=== PATIENT | male | born 1965 | race African-American/Black ===

== ENCOUNTER → 2016-08-20 | Outpatient (CLI) | payer OTHER ==
--- NOTE | 2016-08-20 14:16 | MR ---
EXAMINATION TYPE: MR lumbar spine wo con DATE OF EXAM: 08/20/2016 2:10 PM COMPARISON: NONE HISTORY: Back pain TECHNIQUE: Multiplanar, multisequence images of the lumbar spine were acquired. L1-L2: Normal disc appearance without desiccation. No herniation, protrusion or disc bulging. No ca nal stenosis is present. Foramina are patent bilaterally. L2-L3: Normal disc appearance without desiccation. No herniation, protrusion or disc bulging. No ca nal stenosis is present. Foramina are patent bilaterally. L3-L4: Normal disc appearance without desiccation. No herniation, protrusion or disc bulging. No ca nal stenosis is present. Foramina are patent bilaterally. L4-L5: There is moderate disc desiccation noted. Posterocentral disc protrusion with annular tear. Mi ld effacement ventral thecal sac. No evidence for lateral recess stenosis or central stenosis. Visual ized foramina are patent bilaterally. L5-S1: Severe disc desiccation. Grade 1-2 anterolisthesis L5 on S1 of nearly 1 cm. Bilateral spondyl olysis. Associated disc bulging with mild effacement ventral thecal sac. No evidence for tylor hernia tion or central stenosis. Bilateral neural foraminal encroachment. Lumbar segments are intact. No paraspinal masses are identified. Conus medullaris has a normal appe arance. IMPRESSION: 1. Multilevel degenerative disc disease. 2. Disc protrusion with annular tear at L4-5. 3. Anterolisthesis L5 on S1 as discussed.
--- NOTE | 2016-08-20 14:50 | MR ---
EXAMINATION TYPE: MR knee RT wo con DATE OF EXAM: 08/20/2016 2:30 PM COMPARISON: 06/13/2014 HISTORY: Rt. knee pain TECHNIQUE: Multiplanar, multisequence imaging of the right knee is performed without IV contrast. FINDINGS: MEDIAL MENISCUS: There appears to be a meniscal body radial tear. LATERAL MENISCUS: Anterior and posterior horns are intact without tear. CRUCIATE LIGAMENTS: The anterior and posterior cruciate ligaments are intact and unremarkable. COLLATERAL LIGAMENTS: The medial collateral ligament and lateral collateral ligament complex are inta ct and unremarkable. EXTENSOR MECHANISM: Visualized quadriceps and patellar tendons are intact. EFFUSION: No significant suprapatellar joint effusion. POPLITEAL CYST: No popliteal/smiley cyst. TRICOMPARTMENT SPACES: Patellofemoral joint space narrowing and mild medial tibiofemoral joint space narrowing. CARTILAGE: There is grade II to III chondromalacia involving the medial patellar facet. There is grad e II to III chondromalacia involving the trochlear cartilage. BONE MARROW SIGNAL: No focal abnormal marrow signal is appreciated. OTHER: No additional significant abnormality is appreciated. IMPRESSION: 1. Radial tear of the meniscal body. 2. Chondromalacia of the patella.
== END | disposition home or self-care (01) ==
LOC: RADMRIMAIN 13:25
PROVIDERS: ATTEND Nurse Practitioner Family
DX: M51.26 Other intervertebral disc displacement, lumbar region (principal); M51.36 Other intervertebral disc degeneration, lumbar region; M43.17 Spondylolisthesis, lumbosacral region; S83.241A Other tear of medial meniscus, current injury, right knee, initial encounter; M22.41 Chondromalacia patellae, right knee
CPT/HCPCS: 72148

== ENCOUNTER → 2016-09-01 | Outpatient (CLI) | payer OTHER ==
[2016-08-28 14:47] VITALS: BMI 26.6
[2016-09-01 13:54] VITALS: BP 139/91; PULSE 71; RESP 16; TEMP 97.8
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
== END | disposition home or self-care (01) ==
LOC: PNWHC3 13:33
PROVIDERS: ATTEND Specialist
DX: G89.29 Other chronic pain (principal); M51.36 Other intervertebral disc degeneration, lumbar region; B02.29 Other postherpetic nervous system involvement; M48.06 Spinal stenosis, lumbar region; M47.816 Spondylosis without myelopathy or radiculopathy, lumbar region; M46.96 Unspecified inflammatory spondylopathy, lumbar region; F17.200 Nicotine dependence, unspecified, uncomplicated; Z79.1 Long term (current) use of non-steroidal anti-inflammatories (NSAID); Z79.899 Other long term (current) drug therapy; Z88.8 Allergy status to other drugs, medicaments and biological substances
CPT/HCPCS: 99201

== ENCOUNTER 2017-09-16 19:11 | Emergency (ER) | payer OTHER ==
[2017-09-16 19:42] VITALS: RESP 18
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
--- NOTE | 2017-09-16 21:06 | XR ---
EXAMINATION TYPE: XR lumbar spine 2 or 3V DATE OF EXAM: 09/16/2017 COMPARISON: 04/21/2011 HISTORY: Back pain after falling TECHNIQUE: 3 views FINDINGS: There is 1 cm anterior subluxation of L5 in relation S1. There is narrowing at L5-S1 disc s pace. There is bilateral L5 spondylolysis. There is 25% anterior wedging of L1 vertebral body. This appears to be an acute fracture. This is new compared to old exam. IMPRESSION: L1 compression fracture is new compared to old exam. Spondylolysis of L5 with 1st to 2nd degree L5-S1 spondylolisthesis appears stable.
--- NOTE | 2017-09-16 21:07 | XR ---
EXAMINATION TYPE: XR sacrum coccyx DATE OF EXAM: 09/16/2017 COMPARISON: NONE HISTORY: Pain after falling TECHNIQUE: 2 views FINDINGS: There is L5 spondylolysis with 1st to 2nd degree L5-S1 spondylolisthesis. Sacral segments h ave normal alignment. Coccyx appears intact. Sacroiliac joints appear intact. IMPRESSION: No acute abnormality of the sacrum and coccyx. No acute fracture seen..
--- NOTE | 2017-09-16 21:44 | CT ---
EXAMINATION TYPE: CT lumbar spine wo con DATE OF EXAM: 09/16/2017 9:35 PM COMPARISON: 08/14/2014 HISTORY: Low back pain CT DLP: 412.3 mGycm Automated exposure control for dose reduction was used. Unenhanced CT of the lumbar spine was performed. Bone and soft tissue window settings are submitted as well as coronal and sagittal reconstructions. There is right-sided L5 spondylolysis. There is a 1st to 2nd degree L5-S1 spondylolisthesis. The subl uxation is 1.5 cm. There is moderate narrowing of L5-S1 disc space. There is anterior wedging of L1 vertebral body with depression of the superior endplate. Loss of heig ht is approximately 20%. There is no paraspinal mass. I see no evidence of fracture fragment involvem ent of the spinal canal. The sacroiliac joints are intact. I see no focal bone destruction. IMPRESSION: There is second degree L5-S1 spondylolisthesis with L5 spondylolysis. This is stable compared to 08/14 exam. There is an acute mild compression fracture of L1 vertebral body without any sign of spinal canal inv olvement. No spinal stenosis. Small posterior L4-5 lumbar concentric disc herniation noted.
[2017-09-16] MEDS ORDERED: MORPHINE SULFATE 4 MG/ML SYRINGE IM STA (22:14)
[2017-09-16] MEDS ORDERED: MORPHINE SULFATE/PF 10MG/10ML VL ONE (22:20)
[2017-09-16] MEDS ORDERED: MORPHINE SULFATE/PF 10MG/10ML VL IM STA (22:30)
[2017-09-16 22:32] VITALS: BP 138/87; PULSE 87; TEMP 97.3
== END 2017-09-16 22:32 | disposition home or self-care (01) ==
LOC: EC 19:11
DX: S32.019A Unspecified fracture of first lumbar vertebra, initial encounter for closed fracture (principal); F17.200 Nicotine dependence, unspecified, uncomplicated; Z88.6 Allergy status to analgesic agent; W19.XXXA Unspecified fall, initial encounter
CPT/HCPCS: 72100; 72131; 72220; 96372; 99284

== ENCOUNTER 2018-01-16 18:44 | Emergency (ER) | payer OTHER ==
[2018-01-16 18:47] VITALS: BP 118/84; PULSE 74; RESP 20; TEMP 98.2
[2018-01-16] MEDS ORDERED: PENICILLIN VK 500MG STARTER 4 TAB BTL PO STA (19:07)
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
== END 2018-01-16 19:24 | disposition home or self-care (01) ==
LOC: EC 18:44
DX: K04.7 Periapical abscess without sinus (principal); S02.5XXA Fracture of tooth (traumatic), initial encounter for closed fracture; F17.200 Nicotine dependence, unspecified, uncomplicated; Z88.6 Allergy status to analgesic agent; X58.XXXA Exposure to other specified factors, initial encounter
CPT/HCPCS: 99283

== ENCOUNTER 2018-08-28 20:16 | Emergency (ER) | payer OTHER ==
[2018-08-28 21:03] VITALS: BP 109/69; PULSE 87; RESP 18; TEMP 99.1
--- NOTE | 2018-08-28 21:27 | XR ---
EXAMINATION TYPE: XR wrist complete RT DATE OF EXAM: 08/28/2018 CLINICAL HISTORY: Right wrist pain after injury TECHNIQUE: Frontal, lateral and oblique images of the right wrist are obtained. Navicular view was a lso obtained. COMPARISON: None FINDINGS: There is no acute fracture/dislocation evident in the right wrist. The joint spaces in th e right wrist appear within normal limits. Mild degenerative changes are seen of the first carpometac arpal joint demonstrated as opposing surface sclerosis. The overlying soft tissue appears unremarkabl e. IMPRESSION: There is no acute fracture or dislocation in the right wrist.
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
== END 2018-08-28 21:44 | disposition home or self-care (01) ==
LOC: EC 20:16
DX: M25.531 Pain in right wrist (principal); F17.200 Nicotine dependence, unspecified, uncomplicated; Z88.6 Allergy status to analgesic agent; Y93.B2 Activity, push-ups, pull-ups, sit-ups; Y92.39 Other specified sports and athletic area as the place of occurrence of the external cause
CPT/HCPCS: 29125; 99283

== ENCOUNTER 2018-08-30 07:29 | Emergency (ER) | payer OTHER ==
[2018-08-30 07:37] VITALS: BP 137/95; PULSE 76; RESP 18; TEMP 98.2
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
--- NOTE | 2018-08-30 08:36 | XR ---
EXAMINATION TYPE: XR wrist complete RT DATE OF EXAM: 08/30/2018 CLINICAL HISTORY: Injury with pain. TECHNIQUE: Frontal, lateral, scaphoid, and oblique images of the right wrist are obtained. COMPARISON: Right wrist x-ray from 2 days ago. FINDINGS: There is no acute fracture/dislocation evident in the right wrist. The joint spaces in th e right wrist appear within normal limits. The overlying soft tissue appears unremarkable. IMPRESSION: There is no acute fracture or dislocation in the right wrist. No significant change from prior.
== END 2018-08-30 08:51 | disposition left against medical advice (07) ==
LOC: EC 07:29
DX: M25.531 Pain in right wrist (principal); F17.200 Nicotine dependence, unspecified, uncomplicated; Z88.6 Allergy status to analgesic agent
CPT/HCPCS: 99284

== ENCOUNTER 2018-10-13 11:27 | Emergency (ER) | payer OTHER ==
[2018-10-13 11:42] VITALS: TEMP 98.2
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
[2018-10-13 12:31] VITALS: BP 125/86; PULSE 64; RESP 16
[2018-10-13] MEDS ORDERED: AMOXIC-POT CLAV 875MG STARTER 2 EACH TABLET PO STA (12:33)
[2018-10-13] MEDS ORDERED: KETOROLAC 30 MG/ML 1 ML VIAL IM STA (12:34)
== END 2018-10-13 13:06 | disposition home or self-care (01) ==
LOC: EC 11:27
DX: H66.92 Otitis media, unspecified, left ear (principal); G89.29 Other chronic pain; M54.9 Dorsalgia, unspecified; F17.200 Nicotine dependence, unspecified, uncomplicated; Z79.891 Long term (current) use of opiate analgesic; Z79.1 Long term (current) use of non-steroidal anti-inflammatories (NSAID); Z88.6 Allergy status to analgesic agent
CPT/HCPCS: 99283; 96372; J1885

== ENCOUNTER → 2019-03-24 | Outpatient (CLI) | payer OTHER ==
--- NOTE | 2019-03-24 15:31 | MR ---
MRI BRAIN AND CERVICAL SPINE WITHOUT CONTRAST: CLINICAL HISTORY: Paresthesias TECHNIQUE: Multiplanar, multisequence imaging of the brain and cervical spine is performed without in travenous contrast. COMPARISON: None FINDINGS: Motion artifact is seen on the images limiting evaluation. The patient was instructed to re main still however motion artifact persists. Brain: Diffusion weighted images demonstrate no evidence of a recent infarct or other diffusion abnor mality. There is no extra-axial fluid collection. There are multiple foci of T2/FLAIR hyperintensity (at least 45 on the left and 29 on the right. These measure up to 0.5 x 0.4 cm marked on FLAIR axial fat-sat image 21 posterior left frontal lobe. These are located within the juxtacortical white matte r, periventricular white matter, and pericallosal white matter. The ventricular system and cisternal spaces are normal in size and appearance. The brain volume is age appropriate. Midline structures demonstrate normal morphology. Incidentally noted midline Thornwaldt cyst. The cr aniocervical junction appears within normal limits. Post contrast images demonstrate no abnormal enh ancement. The dural venous sinuses appear patent. The visualized sinuses demonstrate a 1.8 cm mucosal retention cysts of the right maxillary sinus and trace mucosal thickening of the ethmoid sinuses, fr ontal sinuses and maxillary sinuses. There is additionally a second maxillary mucosal retention cyst on the right measuring 2.0 cm. Cervical spine: The cervical spine vertebral bodies maintain normal vertebral body height and alignme nt. Extensive motion artifact limits evaluation. Multilevel degenerative disc disease is seen. Spinal cord signal is markedly limited. C2-C3: There is a small posterior disc osteophyte complex and broad-based disc bulge without spinal c anal stenosis nor neural foraminal narrowing. C3-C4: There is a broad-based disc bulge, uncovertebral hypertrophy and facet arthropathy creating mo derate right and mild left neural foraminal narrowing. No significant spinal canal stenosis although there is slight narrowing the ventral subarachnoid space. C4-C5: There is a right paracentral disc herniation, uncovertebral hypertrophy, and facet arthropathy creating moderate bilateral neural foraminal narrowing and no spinal canal stenosis. C5-C6: There is uncovertebral hypertrophy and facet arthropathy creating severe right and moderate le ft neural foraminal narrowing. Broad-based disc bulge is seen without spinal canal stenosis. C6-C7: There is a right paracentral disc herniation creating mild spinal canal stenosis abutting the ventral thecal sac and narrowing the ventral subarachnoid space. There is also uncovertebral hypertro phy and facet arthropathy. Evaluation of the neural foramen are limited at this level given extensive patient motion although there does appear to be severe bilateral neural foraminal narrowing. C7-T1: Limited evaluation due to patient motion. There is a probable left paracentral disc herniation extending into the left neural foramen creating at least moderate left neural foraminal narrowing. M ild right neural foraminal narrowing is seen. No discrete spinal canal stenosis. IMPRESSION: 1. Right paracentral disc herniation at C6-C7 creating mild spinal canal stenosis. Evaluation of the neural foramen are limited secondary to patient motion although there does appear to be severe bilate ral neural foraminal narrowing. 2. Probable left paracentral disc herniation extending into the left neural foramen at C7-T1 however this is extremely limited given patient motion. 3. Right paracentral disc herniation at C4-C5 is mild. No spinal canal stenosis. 4. Moderate multilevel degenerative disc disease of the cervical spine creating variable degrees of n eural foraminal narrowing as detailed above. Evaluation of the spinal cord is extremely limited with signal overall nondiagnostic for small plaques given extensive patient motion. 5. Numerous foci of nonspecific white matter change (at least 45 on the left and 23 in the right with in the cerebral hemispheres). Considerations are for demyelinating disease given the distribution, at ypical infections such as Lyme's disease, or sequela of microangiopathy. 6. Moderate paranasal sinus disease with large mucosal retention cysts in the right maxillary sinus.
== END | disposition home or self-care (01) ==
LOC: RADMRIMAIN 11:04
PROVIDERS: ATTEND Psychiatry & Neurology Neurology
DX: M48.02 Spinal stenosis, cervical region (principal); M50.221 Other cervical disc displacement at C4-C5 level; M50.30 Other cervical disc degeneration, unspecified cervical region; R90.89 Other abnormal findings on diagnostic imaging of central nervous system; R20.2 Paresthesia of skin
CPT/HCPCS: 70551; 72141

== ENCOUNTER → 2020-07-23 | Outpatient (CLI) | payer OTHER ==
[2020-07-23 09:31] VITALS: BP 118/79; PULSE 74; RESP 16; TEMP 97.6
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
== END | disposition home or self-care (01) ==
LOC: PNWHC3 08:40
PROVIDERS: ATTEND Specialist
DX: M51.26 Other intervertebral disc displacement, lumbar region (principal); M47.816 Spondylosis without myelopathy or radiculopathy, lumbar region; F17.200 Nicotine dependence, unspecified, uncomplicated; Z88.5 Allergy status to narcotic agent; Z79.899 Other long term (current) drug therapy
CPT/HCPCS: 99211

== ENCOUNTER 2020-11-17 18:36 | Emergency (ER) | payer OTHER ==
[2020-11-17 18:50] VITALS: TEMP 97.8
[2020-11-17] MEDS ORDERED: SODIUM CHLORIDE 0.9% 1,000 ML IV STA (19:16)
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
[2020-11-17 19:17] LABS: Basophils # (A) 0.1 k/uL (0-0.2); Basophils % (A) 1 %; Eosinophils # (A) 0.3 k/uL (0-0.7); Eosinophils % (A) 4 %; HGB 15.9 gm/dL (13.0-17.5); Lymphocytes # (A) 1.1 k/uL (1.0-4.8); Lymphocytes % (A) 14 %; MCH 32.2 pg (25.0-35.0); MCHC 34.6 g/dL (31.0-37.0); MCV 92.9 fL (80.0-100.0); Mean Platelet Volume 7.9; Monocytes # (A) 0.7 k/uL (0-1.0); Monocytes % (A) 9 %; Neutrophils # (A) 5.4 k/uL (1.3-7.7); Neutrophils % (A) 71 %; Platelet Count 167 k/uL (150-450); RBC 4.95 m/uL (4.30-5.90); RDW 13.3 % (11.5-15.5); WBC 7.7 k/uL (3.8-10.6)
[2020-11-17 19:22] LABS: Calcium 9.2 mg/dL (8.4-10.2); Potassium 4.2 mmol/L (3.5-5.1)
[2020-11-17 20:48] VITALS: BP 117/72; PULSE 69; RESP 18
== END 2020-11-17 20:48 | disposition home or self-care (01) ==
LOC: EC 18:36
DX: R55 Syncope and collapse (principal); F17.200 Nicotine dependence, unspecified, uncomplicated; F12.90 Cannabis use, unspecified, uncomplicated
CPT/HCPCS: 36415; 80048; 83880; 84484; 85025; 93005; 96360; 99284

== ENCOUNTER → 2021-01-28 | Outpatient (CLI) | payer OTHER ==
--- NOTE | 2021-01-29 03:16 | MR ---
EXAMINATION TYPE: MR brain/cspine wo/w DATE OF EXAM: 01/28/2021 COMPARISON: 03/24/2019 HISTORY: Patient has history of cancer. Dizziness and headache. CONTRAST: Standard multiplanar, multisequence MRI departmental protocol utilizing 8 mL intravenous Gadavist john olinium contrast. Diffusion images show no evidence of an acute infarct. Ventricles and sulci appear normal. There is n o mass effect nor midline shift. There is no sign of intracranial hemorrhage. Brainstem is intact. Th ere are scattered multiple small foci of increased signal at the garcia-white matter junction both cere bral hemispheres. Total number is approximately 30 and these measure up to 6 mm. The cerebellum appea rs intact. There are mucus retention cysts in the maxillary sinuses. There is no evidence of posterio r fossa mass. Sella turcica appears normal. Corpus callosum is intact. Contrast images show no pathologic enhancement. There is normal enhancement of the venous sinuses. Cervical vertebra have normal alignment. Disc spaces are fairly normal. There is posterior disc herni ation at C6-7 elevating the posterior longitudinal ligament. Spinal canal is narrowed to 7 mm. Cervic al spinal cord shows normal signal pattern. There is no edema. There is no significant spinal stenosi s. Facet joints are intact. There is small posterior disc bulging at C3-4 and C4-5. There is C7-T1 po sterior mild disc bulging. I see no focal bone destruction. Contrast images show no pathologic enhanc ement of the cervical spine. IMPRESSION: Posterior disc herniation at C6-7 with 7 mm spinal canal. Numerous brain white matter small high signal foci. This could relate to multifocal microvascular isc hemia or demyelinating disease. No evidence of demyelinating disease in the cervical spinal cord. No evidence of cortical infarct.
--- NOTE | 2021-01-30 12:22 | CTL ---
EXAMINATION TYPE: CT Low Dose Lung DATE OF EXAM ORDERED: 01/28/2021 HISTORY: 55-year-old male Z87.891, personal tobacco use. Lung cancer screening CT DLP: 113.[address] CTDI: 3.3 mGy Automated exposure control for dose reduction was used. SCREENING VISIT: Baseline COMPARISON: None TECHNIQUE: Low dose computed tomography scan was performed through the chest with coronal and sagitta l reconstructions. CT DIAGNOSTIC QUALITY: Satisfactory FINDINGS: Heart normal size without pericardial effusion. Mildly ectatic aortic root at 3.7 cm. Bovine configuration to the aortic arch. A few prominent but nonenlarged mediastinal lymph nodes measuring up to 7 mm in the AP window and pre carinal space. No thoracic lymphadenopathy by CT size criteria. There is mild diffuse bronchial wall thickening. Mild paraseptal and centrilobular emphysema with gema pical pleural parenchymal scarring is noted. A few scattered tiny calcified granulomas. Mild strandy dependent atelectasis in the lower lobes. No consolidation or pleural effusion. Some nodularity in the right middle lobe measuring up to 5 mm as an almost tree in bud appearance, ax ial image 175 through 182. 4 mm triangular nodule along the minor fissure, axial image 141. Visualized upper abdomen shows a few gallstones measuring up to 1.4 cm. No abnormal gallbladder diste ntion. Bones: No osseous destructive process. IMPRESSION: 1. LungRADS Category 2 (benign appearance, <1% chance of malignancy). A few tiny pulmonary nodules on the right measuring up to 5 mm on baseline screening. The largest nodule is suspected to relate to t ree-in-bud opacities which could represent a small area of bronchiolitis. 2. COPD with mild emphysema. Recommend smoking cessation. 3. Cholelithiasis measuring up to 1.[address] LUNG RAD AND CT CHEST RECOMMENDATION: Lung-Rad 2 Benign Appearance or Behavior: Continue annual sc reening with LDCT in 12 months.
== END | disposition home or self-care (01) ==
LOC: RADCTMAIN 15:37
PROVIDERS: ATTEND Internal Medicine Hematology & Oncology
DX: Z12.2 Encounter for screening for malignant neoplasm of respiratory organs (principal); M50.223 Other cervical disc displacement at C6-C7 level; R93.0 Abnormal findings on diagnostic imaging of skull and head, not elsewhere classified; R91.8 Other nonspecific abnormal finding of lung field; J43.2 Centrilobular emphysema
CPT/HCPCS: 71271; 70553; 72156; A9585

== ENCOUNTER 2022-12-21 10:46 | Emergency (ER) | payer OTHER ==
[2022-12-21] MEDS ORDERED: HYDROmorphone 1 MG/ML 1 ML SYRINGE IVP STA ×2 (11:10→14:16)
[2022-12-21 11:23] LABS: Glucose,Whole Blood 123 mg/dL (70-110)
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
[2022-12-21 11:43] LABS: Basophils % (A) 0 %; Eosinophils # (A) 0.3 k/uL (0-0.7); Eosinophils % (A) 5 %; HCT 44.9 % (39.0-53.0); HGB 14.8 gm/dL (13.0-17.5); Lymphocytes # (A) 1.3 k/uL (1.0-4.8); Lymphocytes % (A) 18 %; MCH 30.9 pg (25.0-35.0); MCV 93.4 fL (80.0-100.0); Mean Platelet Volume 8.7; Monocytes # (A) 0.4 k/uL (0-1.0); Monocytes % (A) 5 %; Neutrophils # (A) 4.8 k/uL (1.3-7.7); Neutrophils % (A) 69 %; Platelet Count 143 k/uL (150-450); RDW 13.9 % (11.5-15.5); WBC 6.9 k/uL (3.8-10.6)
[2022-12-21 11:50] LABS: ALT 20 U/L (4-49); AST 35 U/L (17-59); African American GFR (CKD) 58 (>60 ml/min/1.73 sqM); Albumin 3.8 g/dL (3.5-5.0); Alcohol <10 mg/dL; Alkaline Phosphatase 74 U/L (38-126); Anion Gap 6 mmol/L; Blood Urea Nitrogen 15 mg/dL (9-20); Calcium 8.6 mg/dL (8.4-10.2); Carbon Dioxide 23 mmol/L (22-30); Chloride 110 mmol/L (98-107); Glucose 98 mg/dL (74-99); Non-African American GFR(CKD) 50 (>60 ml/min/1.73 sqM); Potassium 4.4 mmol/L (3.5-5.1); Sodium 139 mmol/L (137-145); Total Bilirubin 1.2 mg/dL (0.2-1.3); Total Protein 6.8 g/dL (6.3-8.2)
[2022-12-21 11:57] LABS: INR 1.2 (<1.2); Partial Thromboplastin Time 24.6 sec (22.0-30.0); Prothrombin Time 12.1 sec (9.0-12.0)
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
[2022-12-21 15:01] LABS: Urn Cannabinoid Scrn Detected (NotDetected)
[2022-12-21 15:02] LABS: Amphetamine Screen,Urine Not Detected (NotDetected); Barbiturate Screen,Urine Not Detected (NotDetected); Benzodiazepines Screen,Urine Not Detected (NotDetected); Cocaine Screen,Urine Not Detected (NotDetected); Methadone Screen, Urine Not Detected (NotDetected); Opiate Screen,Urine Detected (NotDetected); Oxycodone Screen, Urine Not Detected (NotDetected); Phencyclidine Screen,Urine Not Detected (NotDetected); Tricyclic Antidepressant,Urine Not Detected (NotDetected)
--- NOTE | 2022-12-21 15:05 | XR ---
Right wrist. HISTORY: Post reduction film for distal radial fracture. TECHNIQUE: 2 views the right wrist are obtained. FINDINGS: On the AP view of the right wrist there is near anatomic alignment of the distal right radial metaphy seal fracture. On the lateral view there is mild posterior displacement. The carpal bones and articul ations are normal. IMPRESSION: Post reduction for distal right radial fracture as described above.
[2022-12-21 15:14] VITALS: BP 136/107; PULSE 78; RESP 19; TEMP 97.6
== END 2022-12-21 15:13 | disposition home or self-care (01) ==
LOC: EC 10:46
DX: S29.011A Strain of muscle and tendon of front wall of thorax, initial encounter (principal); S52.501D Unspecified fracture of the lower end of right radius, subsequent encounter for closed fracture with routine healing; F12.90 Cannabis use, unspecified, uncomplicated; F17.200 Nicotine dependence, unspecified, uncomplicated; Z88.6 Allergy status to analgesic agent; V86.55XA Driver of 3- or 4- wheeled all-terrain vehicle (ATV) injured in nontraffic accident, initial encounter
CPT/HCPCS: 36415; 93005; 80053; 84484; 85025; 85610; 85730; 80306; 72170; 73100; 73110; 71045; 71260; 74177; 99284; 96374; 96376; 25605; G0480; J1170; Q9967; 80320

== ENCOUNTER 2023-06-22 20:10 | Emergency (ER) | payer OTHER ==
[2023-06-22 20:26] VITALS: TEMP 98
[2023-06-22 21:16] VITALS: RESP 18
[2023-06-22 21:47] LABS: Basophils % (A) 0 %; Eosinophils # (A) 0.4 k/uL (0-0.7); Eosinophils % (A) 4 %; HCT 45.9 % (39.0-53.0); HGB 15.6 gm/dL (13.0-17.5); Lymphocytes # (A) 2.2 k/uL (1.0-4.8); Lymphocytes % (A) 24 %; MCH 31.9 pg (25.0-35.0); MCHC 34.1 g/dL (31.0-37.0); MCV 93.6 fL (80.0-100.0); Mean Platelet Volume 8.4; Monocytes # (A) 0.6 k/uL (0-1.0); Monocytes % (A) 6 %; Neutrophils # (A) 5.9 k/uL (1.3-7.7); Neutrophils % (A) 64 %; Platelet Count 178 k/uL (150-450); RDW 13.1 % (11.5-15.5); WBC 9.2 k/uL (3.8-10.6)
--- NOTE | 2023-06-22 21:56 | XR ---
EXAMINATION TYPE: XR chest 2V DATE OF EXAM: 06/22/2023 9:16 PM CLINICAL INDICATION:Male, 57 years old with history of Chest Pain; COMPARISON: Chest radiographs from 12/21/2022 TECHNIQUE: XR chest 2V Frontal and lateral views of the chest. FINDINGS: Lungs/Pleura: There is no evidence of pleural effusion, focal consolidation, or pneumothorax. Pulmonary vascularity: Unremarkable. Heart/mediastinum: Cardiomediastinal silhouette is unremarkable. Musculoskeletal: No acute osseous pathology. IMPRESSION: No acute cardiopulmonary disease/process.
[2023-06-22 21:59] LABS: INR 1.1 (<1.2); Prothrombin Time 11.6 sec (10.0-12.5)
[2023-06-22 22:00] VITALS: BP 136/95; PULSE 65
[2023-06-22 22:01] LABS: ALT 16 U/L (4-49); AST 24 U/L (17-59); African American GFR (CKD) 83 (>60 ml/min/1.73 sqM); Albumin 3.8 g/dL (3.5-5.0); Alkaline Phosphatase 78 U/L (38-126); Anion Gap 11 mmol/L; Blood Urea Nitrogen 9 mg/dL (9-20); Calcium 8.9 mg/dL (8.4-10.2); Carbon Dioxide 20 mmol/L (22-30); Chloride 110 mmol/L (98-107); Glucose 94 mg/dL (74-99); Magnesium 1.7 mg/dL (1.6-2.3); Non-African American GFR(CKD) 72 (>60 ml/min/1.73 sqM); Sodium 141 mmol/L (137-145); Total Bilirubin 0.5 mg/dL (0.2-1.3); Total Protein 6.8 g/dL (6.3-8.2)
[2023-06-22 22:14] LABS: Appearance,Urine Clear (Clear); Bilirubin,Urine Negative (Negative); Blood,Urine Negative (Negative); Color,Urine Light Yellow; Glucose,Urine (UA) Negative (Negative); Ketones,Urine Negative (Negative); Leukocyte Esterase,Urine Negative (Negative); Nitrite,Urine Negative (Negative); PH, Urine 6.5 (5.0-8.0); Protein,Urine Negative (Negative); Specific Gravity,Urine 1.012 (1.001-1.035); Urobilinogen,Urine <2.0 mg/dL (<2.0)
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
== END 2023-06-23 00:58 | disposition left against medical advice (07) ==
LOC: EC 20:10
DX: R07.89 Other chest pain (principal); F17.200 Nicotine dependence, unspecified, uncomplicated; F12.90 Cannabis use, unspecified, uncomplicated; Z88.6 Allergy status to analgesic agent; Z53.29 Procedure and treatment not carried out because of patient's decision for other reasons
CPT/HCPCS: 36415; 71046; 80053; 81003; 83735; 84484; 85025; 85379; 85610; 85730; 99285

== ENCOUNTER → 2024-04-27 | Outpatient (CLI) | payer OTHER ==
--- NOTE | 2024-04-27 13:35 | CTL ---
EXAMINATION TYPE: CT Low Dose Lung DATE OF EXAM ORDERED: 04/27/2024 COMPARISON: CT chest abdomen pelvis 12/21/2022, CT Low Dose Lung 01/28/2021 CLINICAL INDICATION: Male, 58 years old with history of F17.200 NICOTINE DEPENDENCE, CIGARETTES, UNCO MPLICATED; PHH, SMOKER, Lung cancer screening, History of Smoking/tobacco use. TECHNIQUE: Low dose computed tomography scan was performed through the chest at 1 mm thick sections a nd reconstructed images in multiple planes at 1 mm and [address] DLP: 117.[address] CTDI: 3.2 mGy Automated exposure control for dose reduction was used. CT DIAGNOSTIC QUALITY: Satisfactory FINDINGS: Nodules: Left lower lobe calcified 3 mm granuloma. Right midlung 3.7 mm pulmonary nodule abutting the minor fissure (series 6, image 28). Stable from 20 21. Stable right middle lobe 4.9 mm pulmonary nodule (series 4, image 167). No new or enlarging pulmonary nodules. LUNGS: COPD: Severity: Mild paraseptal emphysema changes. Fibrosis: Severity: None Lymph nodes: None Other findings: None RIGHT PLEURAL SPACE: Effusion: None Calcification: None Thickening: None Pneumothorax: None LEFT PLEURAL SPACE: Effusion: None Calcification: None Thickening: None Pneumothorax: None HEART: Heart Size: Normal Coronary Calcification: None Pericardial Effusion: None OTHER FINDINGS: Upper abdomen: Cholelithiasis. Bony thorax: None Supraclavicular region: None Other: Mild bilateral gynecomastia. IMPRESSION: Couple of stable pulmonary nodule dating back to 2020 and considered benign. No new or enlarging pulm onary habitus. CT LUNG RAD AND CT CHEST RECOMMENDATION: Lung-Rad 2 Benign Appearance or Behavior: Continue annual sc reening with LDCT in 12 months. S Modifier (other clinically significant findings): None [facility], , 04/27/2024 1:33 PM
== END | disposition home or self-care (01) ==
LOC: RADCTMAIN 11:33
PROVIDERS: ATTEND Internal Medicine
DX: Z12.2 Encounter for screening for malignant neoplasm of respiratory organs (principal); F17.210 Nicotine dependence, cigarettes, uncomplicated; R91.1 Solitary pulmonary nodule
CPT/HCPCS: 71271

== ENCOUNTER → 2024-05-11 | Outpatient (CLI) | payer OTHER ==
--- NOTE | 2024-05-11 09:33 | US ---
EXAMINATION TYPE: US Aorta Screening DATE OF EXAM: 05/11/2024 COMPARISON: CT(12/21/2022) CLINICAL INDICATION: Male, 58 years old with history of F17.210 NICOTINE DEPENDENCE F17.200 CURRENT S MOKER; TECHNIQUE: Multiple sonographic images of the abdominal aorta are obtained with grayscale and color D oppler imaging. with grayscale and color Doppler imaging FINDINGS: EXAM MEASUREMENTS: Abdominal Aorta: Proximal: 2.7x2.7cm Mid: 2.2x2.0cm Distal: 3.2x2.9cm Bifurcation: Right Iliac: 0.8x1.0cm Left Iliac: 1.1x0.8cm MEDICAL VAN DRIVER NOTES: Dilated Distal Aorta with internal echoes Plaque visualized throughout IMPRESSION: Distal infrarenal abdominal aortic aneurysm measuring up to 3.[address] angiogram recommen ded if not already performed. [facility], , 05/11/2024 9:31 AM
== END | disposition home or self-care (01) ==
LOC: RADUSWWP 08:39
PROVIDERS: ATTEND Internal Medicine
DX: I71.43 Infrarenal abdominal aortic aneurysm, without rupture (principal); F17.210 Nicotine dependence, cigarettes, uncomplicated
CPT/HCPCS: 76706

== ENCOUNTER → 2024-05-24 | Outpatient (CLI) | payer OTHER ==
--- NOTE | 2024-05-24 18:40 | CT ---
EXAMINATION TYPE: CT angio abdomen pelvis CT DLP: 800.8 mGycm, Automated exposure control for dose reduction was used. DATE OF EXAM: 05/24/2024 2:12 PM COMPARISON: Ultrasound aorta 05/11/2024, CT chest abdomen pelvis 12/21/2022 CLINICAL INDICATION:Male, 58 years old with history of AAA; AAA f/u TECHNIQUE: Multiple thin slice sub-millimeter images were obtained through the abdomen and pelvis bef ore and after administration of contrast. Patient was given Isovue 370, 100 cc intravenously. 3-D r econstructed images and maximum intensity projection images were obtained of the abdominal aorta and its branches. FINDINGS: CTA Abdomen and pelvis: Infrarenal fusiform abdominal aortic aneurysm measuring 3.3 x 2.9 cm with mod erate amount of eccentric mural thrombus. Previously measured up to 2.8 cm 2022. No evidence for intr amural hematoma or dissection. Mild atherosclerotic plaquing is identified within the abdominal aorta . The origins of the superior mesenteric artery, renal arteries, inferior mesenteric artery, and delia iac axis are patent. Atherosclerotic plaquing with some mural thrombus formation is identified in th e common iliac arteries. The visualized bilateral internal and external iliac arteries are patent. T he visualized bilateral common femoral arteries are patent. The visualized proximal portions of the b ilateral superficial and deep femoral arteries are patent. Mild focal narrowing of the left superfici al femoral artery with surrounding scarring identified. VISCERA: The liver, spleen, adrenal glands, kidneys, pancreas, and gallbladder are not optimally enha nced due the arterial phase utilized. LIVER: Unremarkable GALLBLADDER AND BILE DUCTS: Cholelithiasis. No biliary ductal dilatation. PANCREAS: Unremarkable. SPLEEN: Unremarkable. ADRENAL GLANDS: Unremarkable. KIDNEYS AND URETERS: No evidence of hydronephrosis or renal calculus. PELVIS BLADDER: Underdistended limiting evaluation. REPRODUCTIVE: Unremarkable. ABDOMEN & PELVIS STOMACH AND BOWEL: Stomach and duodenum are unremarkable. No focal bowel wall thickening or surroundi ng inflammatory changes. No evidence of bowel obstruction. PERITONEUM: No evidence of pneumoperitoneum or free fluid. MUSCULOSKELETAL: No acute osseous abnormalities. Stable anterior wedge compression deformity of the L 1 vertebral body. Stable grade 2 anterolisthesis of L5 on S1. LYMPH NODES: No gross evidence for lymphadenopathy. SOFT TISSUE/ABDOMINAL WALL: Scarring identified within the right inguinal region with metallic 1.3 cm density within the right thigh musculature again. Tiny fat filled hernia. LOWER CHEST: No significant findings. IMPRESSION 1. Mild increased size of 3.3 centimeter infrarenal fusiform abdominal aortic aneurysm from prior CT 12/21/2022. No evidence for intramural hematoma or dissection. 2. Mild to moderate atherosclerotic disease of the aorta. 3. Cholelithiasis. [facility], , 05/24/2024 6:38 PM
== END | disposition home or self-care (01) ==
LOC: RADCTMAIN 13:08
PROVIDERS: ATTEND Internal Medicine
DX: I71.43 Infrarenal abdominal aortic aneurysm, without rupture (principal); I70.0 Atherosclerosis of aorta; K80.20 Calculus of gallbladder without cholecystitis without obstruction; K46.9 Unspecified abdominal hernia without obstruction or gangrene
CPT/HCPCS: 74174; Q9967